=== PATIENT | female | born 1995 | race Caucasian/White ===

== ENCOUNTER 2023-02-17 02:02 | Outpatient (CLI) | payer BC, OTHER ==
[2023-02-17 03:18] VITALS: BP 133/79; PULSE 95; RESP 16; TEMP 97
--- NOTE | 2023-03-29 12:10 | P.MSEPDOC ---
Presenting Problems - Arrival Data Date of Arrival on Unit: 02/17/23 Time of Arrival on Unit: 02:02 Mode of Transport: Wheelchair - Complaint OB-Reason for Admission/Chief Complaint: Other Comment: Patient presents to triage with complaints of nausea, vomiting x1, and diarrhea x1 around 0122 this morning, with abdominal cramping rating pain 5/10, slightly more painful than period cramps. Medical History - Information : 1 Para: 0 Term: 0 : 0 Abortions: Spontaneous or Elective: 0 Number of Living Children: 0 - Gestational Age Gestational Age by BELEN (wks/days): 38 Weeks and 0 Days Review of Systems - Review of Systems Constitutional: No problems Breast: No problems ENT: No problems Cardiovascular: No problems Respiratory: No problems Gastrointestinal: No problems Genitourinary: No problems Musculoskeletal: No problems Neurological: No problems Skin: No problems Vital Signs - Temperature Temperature: 97.0 F Temperature Source: Temporal Artery Scan - Pulse Pulse Oximetery Pulse Rate: 95 Pulse Assessment Method: Pulse Oximetry - Respirations Respiratory Rate: 16 Oxygen Delivery Method: Room Air O2 Sat by Pulse Oximetry: 98 - Blood Pressure Right Arm Blood Pressure: 133/79 Blood Pressure Mean: 97 Blood Pressure Source: Automatic Cuff Medical Screen Scoring - Cervical Exam Dilation (cm): 1 Membranes: Intact - Uterine Contractions Frequency From (mins): 2 Frequency To (mins): 4 Duration From (seconds): 30 Duration To (seconds): 40 Intensity: Mild Resting: Soft to palpation - Assessment - Baby A Baseline FHR: 130 Heart Rate - NICHD Category: Category I (Normal) NST: Reactive Physician Notification - Physician Notified Physician Notified Date: 02/17/23 Physician Notified Time: 02:29 Physician: Lara Huff Order Received: Yes (Discharge home with instructions) Maternal Triage Index - Maternal Triage Index Presenting for scheduled procedure w/no complaint: No - Stat/Priority 1 Stat Priority 1: No - Urgent/Priority 2 Urgent Priority 2: No - Prompt/Priority 3 Prompt Priority 3: No - Non-Urgent/Priority 4 Non-Urgent Priority 4: Yes Criteria Met for Priority 4: Dr. Huff called with triage patient, RN gave report on maternal and status. Patient complaint of nausea, vomiting x1, and diarrhea x1 around 0122 this morning. Contractions 2-4 minutes apart with pain rating slightly more painful than a period cramp. Reactive NST. No leaking fluid. Orders to discharge home with instructions to return to triage if contractions start lasting longer and become stronger about 2-3 minutes apart. O ral fluids as tolerated, and BRAT diet intructions and education. Disposition - Disposition OB Disposition: Discharge to home Discharge Date: 02/17/23 Discharge Time: 02:38 I agree with the RN Medical Screening Exam: Yes Case reviewed; plan agreed upon as documented in EMR&OBIX.: Yes Diagnosis: nausea and vomitting in
== END 2023-02-17 02:38 | disposition home or self-care (01) ==
LOC: FBPOP 02:02
PROVIDERS: ATTEND Obstetrics & Gynecology
DX: O21.9 Vomiting of pregnancy, unspecified (principal); Z3A.38 38 weeks gestation of pregnancy
CPT/HCPCS: 59025; 99213

== ENCOUNTER 2023-02-28 11:46 | Outpatient (CLI) | payer BC, OTHER ==
[2023-02-28] MEDS ORDERED: ACETAMINOPHEN TAB 500 MG TAB PO STA (12:19)
[2023-02-28 13:12] VITALS: BP 127/77; PULSE 95; RESP 14; TEMP 97.2
--- NOTE | 2023-04-18 16:16 | P.MSEPDOC ---
Presenting Problems - Arrival Data Date of Arrival on Unit: 02/28/23 Time of Arrival on Unit: 11:46 Mode of Transport: Ambulatory - Complaint OB-Reason for Admission/Chief Complaint: Headache Medical History - Information : 1 Para: 0 Term: 0 : 0 Abortions: Spontaneous or Elective: 0 Number of Living Children: 0 - Gestational Age Gestational Age by BELEN (wks/days): 39 Weeks and 4 Days Review of Systems - Review of Systems Constitutional: No problems Breast: No problems ENT: No problems Cardiovascular: No problems Respiratory: No problems Gastrointestinal: No problems Genitourinary: No problems Musculoskeletal: No problems Neurological: No problems Skin: No problems Vital Signs - Temperature Temperature: 97.2 F Temperature Source: Temporal Artery Scan - Pulse Right Brachial Pulse Rate: 95 Pulse Assessment Method: Automatic Cuff - Respirations Respiratory Rate: 14 Oxygen Delivery Method: Room Air - Blood Pressure Right Arm Blood Pressure: 127/77 Blood Pressure Mean: 93 Blood Pressure Source: Automatic Cuff Medical Screen Scoring - Assessment - Baby A Baseline FHR: 135 Heart Rate - NICHD Category: Category I (Normal) NST: Reactive Physician Notification - Physician Notified Physician Notified Date: 02/28/23 Physician Notified Time: 12:19 Physician: Qing Barron New Order Received: Yes - Notification Comment Comment: d/c home Maternal Triage Index - Maternal Triage Index Presenting for scheduled procedure w/no complaint: No - Stat/Priority 1 Stat Priority 1: No - Urgent/Priority 2 Urgent Priority 2: No - Prompt/Priority 3 Prompt Priority 3: No - Non-Urgent/Priority 4 Non-Urgent Priority 4: Yes Criteria Met for Priority 4: discomforts of - Scheduled/Requesting Priority 5 Scheduled/Requesting Priority 5: No Disposition - Disposition OB Disposition: Discharge to home Discharge Date: 02/28/23 Discharge Time: 13:07 I agree with the RN Medical Screening Exam: Yes Case reviewed; plan agreed upon as documented in EMR&OBIX.: Yes Diagnosis: RELATED CONDITIONS, UNSPECIFIED, THIRD TRIMESTER
== END 2023-02-28 13:13 | disposition home or self-care (01) ==
LOC: FBPOP 11:46
PROVIDERS: ATTEND Obstetrics & Gynecology Obstetrics
DX: O26.893 Other specified pregnancy related conditions, third trimester (principal); R51.9 Headache, unspecified; Z3A.38 38 weeks gestation of pregnancy
CPT/HCPCS: 59025; 99213

== ENCOUNTER 2023-03-03 23:22 | Inpatient (IN) | payer BC, OTHER ==
[2023-03-04] MEDS ORDERED: CARBOPROST TROMETHAMINE 250 MCG/ML 1 ML AMP IM PRN (07:36)
[2023-03-04] MEDS ORDERED: miSOPROStoL 200 MCG TAB PO PRN (07:36)
[2023-03-04] MEDS ORDERED: METHYLERGONOVINE 0.2 MG/ML 1 ML AMP IM PRN (07:36)
[2023-03-04] MEDS ORDERED: OXYTOCIN 10 UNIT/ML 1 ML VIAL IM PRN (07:36)
[2023-03-04] MEDS ORDERED: TERBUTALINE 1 MG/ML VIAL SQ PRN (07:36)
[2023-03-04] MEDS ORDERED: TRANEXAMIC 1,000 MG/100ML-NACL 1,000 MG in EMPTY BAG 1 BAG IV PRN (07:36)
[2023-03-04] MEDS ORDERED: LIDOCAINE 0.5% (PF) 5 MG/ML (50 ML SDV) SQ PRN (07:36)
[2023-03-04] MEDS ORDERED: OXYTOCIN 30 UNITS/500 ML NS 30 UNIT in SALINE 1 500ML.BAG IV SCH (07:45)
[2023-03-04] MEDS: LACTATED RINGERS 1,000 ML IV SCH ×3 (07:46→11:37)
[2023-03-04 07:57] LABS: Basophils % (A) 0 %; Eosinophils # (A) 0.1 k/uL (0-0.7); Eosinophils % (A) 1 %; HCT 35.5 % (34.0-46.0); HGB 12.3 gm/dL (11.4-16.0); Lymphocytes # (A) 2.1 k/uL (1.0-4.8); Lymphocytes % (A) 17 %; MCH 31.1 pg (25.0-35.0); MCHC 34.6 g/dL (31.0-37.0); MCV 90.1 fL (80.0-100.0); Mean Platelet Volume 7.8; Monocytes # (A) 0.5 k/uL (0-1.0); Monocytes % (A) 4 %; Neutrophils # (A) 9.4 k/uL (1.3-7.7); Neutrophils % (A) 77 %; Platelet Count 203 k/uL (150-450); RBC 3.94 m/uL (3.80-5.40); RDW 14.3 % (11.5-15.5); WBC 12.2 k/uL (3.8-10.6)
--- NOTE | 2023-03-04 09:35 | P.HPOB ---
History of Present Illness H&P Date: 03/04/23 Chief Complaint: IUP at 40 1/7 weeks, latent labor 27-year-old at 40 1/7 weeks presented to labor and delivery last evening after she noted some vaginal bleeding and contractions. Patient was not making cervical change, heart tones were category 2 therefore she was observed overnight. Patient had been receiving routine care with myself which has been essentially uncomplicated. Patient states she notes good movement and occasional contraction. Review of Systems Constitutional: Denies chills, Denies fatigue, Denies fever Ears, nose, mouth and throat: Denies headache Cardiovascular: Reports leg edema Respiratory: Denies dyspnea Gastrointestinal: Denies constipation, Denies diarrhea, Denies nausea, Denies vomiting Genitourinary: Reports Past Medical History Past Medical History: No Reported History History of Any Multi-Drug Resistant Organisms: None Reported Past Surgical History: No Surgical Hx Reported Past Anesthesia/Blood Transfusion Reactions: No Reported Reaction Smoking Status: Never smoker Medications and Allergies Home Medications Medication Instructions Recorded Confirmed Type Vit No.179/Iron/Folic 1 each PO DAILY 02/17/23 03/03/23 History [ Tablet] Allergies Allergy/AdvReac Type Severity Reaction Status Date / Time No Known Allergies Allergy Verified 03/03/23 23:24 Exam Osteopathic Statement: *. No significant issues noted on an osteopathic structu ral exam other than those noted in the History and Physical/Consult. Vital Signs Temp Pulse Resp BP Pulse Ox 03/04/23 01:28 97.8 F 82 16 123/69 99 03/03/23 23:23 97.5 F L 82 16 118/68 98 Intake and Output 03/03/23 03/04/23 03/04/23 22:59 06:59 14:59 Other: # Voids 2 Weight 99.79 kg Targeted physical exam is performed in this date and manager risk management a well-nourished well-developed female in no acute distress, breathing is nonlabored, heart has a regular rate and rhythm, abdomen is gravid, on cervical exam she is 2/80/-2 station amniotomy is performed and clear fluid was obtained. heart tones were noted to be category 2, contractions were irregular, Pitocin at 2 milliunits at the time of rupture of membranes. Results Result Diagrams: 03/04/23 07:38 Abnormal Lab Results - Last 24 Hours (Table) 03/04/23 Range/Units 07:38 WBC 12.2 H (3.8-10.6) k/uL Neutrophils # 9.4 H (1.3-7.7) k/uL Assessment and Plan (1) Post-dates Current Visit: Yes Status: Acute Code(s): O48.0 - POST-TERM SNOMED Code(s): 36955567 Plan: 27-year-old at 40 1/7 weeks that presented to labor and delivery last evening with complaints of vaginal bleeding and contractions. Patient was not noted to be in labor but heart tones were noted to be category 2 therefore she was observed overnight. This a.m. patient was admitted and Pitocin induction of labor was begun given heart tones, status. Patient underwent amniotomy and clear fluid was obtained. Patient is counseled on options for analgesia including Nubain, nitrous, epidural. Patient states she will consider. Patient is counseled on heart tones and possible need for section. We'll continue to monitor closely.
[2023-03-04] MEDS ORDERED: SODIUM CHLORIDE 0.9% 250 ML BAG ONE (10:34)
[2023-03-04] MEDS ORDERED: fentaNYL (PF) 50 MCG/ML 5 ML AMP ONE (10:34)
[2023-03-04] MEDS ORDERED: ROPIVACAINE 5 MG/ML 30 ML VIAL ONE (10:34)
[2023-03-04] MEDS ORDERED: ROPIVACAINE 225 MG, fentaNYL (PF). 450 MCG in SODIUM CHLORIDE 0.9% 171 ML EPIDURAL ONE (11:54)
[2023-03-04] MEDS: IBUPROFEN 600 MG TAB PO SCH ×2 (18:00→23:38)
[2023-03-04] MEDS ORDERED: diphenhydrAMINE 50 MG CAP PO PRN (18:25)
[2023-03-04] MEDS ORDERED: diphenhydrAMINE 50 MG/ML 1 ML VIAL IVP PRN ×2 (18:25)
[2023-03-04] MEDS ORDERED: ZOLPIDEM 5 MG TAB PO PRN (18:25)
[2023-03-04] MEDS ORDERED: LANOLIN CREAM 5 GM TUBE TOPICAL PRN (18:25)
[2023-03-04] MEDS ORDERED: SIMETHICONE 80 MG CHEWABLE PO PRN (18:25)
[2023-03-04] MEDS ORDERED: HYDROCORTISONE 2.5% RECTAL CREAM 30 GM TUBE RECTAL PRN (18:25)
[2023-03-04] MEDS ORDERED: diphenhydrAMINE 25 MG CAP PO PRN (18:25)
--- NOTE | 2023-03-04 18:33 | P.PROBDLV ---
Vaginal Delivery Note - . Vaginal Delivery Note: Findings; viable female delivered at 1723, weight of 7 lbs. 7 oz., Apgars of 9 and 9 at one and 5 minutes respectively. This is a 27-year-old 1 para 0 that presented to labor and delivery last evening at 40 and one sevenths weeks, patient had noted contractions and vaginal bleeding at home. Patient had noted category 2 heart tones therefore she was observed overnight contractions were irregular. Patient was noted to be 2 cm with no cervical change noted through the night. This a.m. after a episode of minimal variability category 2 heart tones continued therefore amniotomy was performed with planned induction of labor given category 2 heart tones. Pitocin was begun approximately 1 hour prior to amniotomy. Clear fluid was obtained upon amniotomy. patient did well with contractions but did become uncomfortable requesting epi dural placement. Epidural was placed without difficulty by the anesthesia department. Patient made good progress towards complete. Once completely dilated patient began pushing. With excellent maternal effort patient brought the infant down to a presentation. A midline episiotomy was preformed secondary to suspec clitoral tearing, with the next push the head was delivered in an OA presentation followed by the anterior and posterior shoulders, body. Spontaneous cry was noted at . After two-minute delay the umbilical cord was doubly clamped and cut. The placenta was delivered spontaneously intact with a three-vessel cord being noted. On inspection the patient's vaginal vault bilateral sulcus tears in addition to a midline episiotomy laceration was appreciated. Patient had a dense epidural therefore the midline episiotomy was repaired in the usual fashion with 3-0 Rapide. Attention was then turned to the patient's right-sided sulcal tear which was repaired with 3-0 Vicryl in a running locked fashion. Attention was then turned to the left sulcal tear which was repaired with 3-0 Rapide in a running locked fashion. Midline bleeding was appreciated afterwards therefore multiple [id number] sutures were used for hemostasis. Surgicel powder was placed along the mucosal edges as they continued to have oozing. After powder was placed and pressure was applied bleeding improved. Uterus is noted to be firm and below the umbilicus. Prior to delivery of the placenta the bladder was drained for approximately 100 mL of clear yellow urine. All counts were noted to be correct 2 at the end of the delivery. Estimated blood loss 250cc
[2023-03-04] MEDS: ACETAMINOPHEN TAB 325 MG TAB PO PRN (21:13)
[2023-03-04] MEDS: SENNOSIDES-DOCUSATE SODIUM 1 EACH TAB PO SCH (23:37)
[2023-03-05] MEDS: ACETAMINOPHEN TAB 325 MG TAB PO PRN ×3 (03:41→15:17)
[2023-03-05] MEDS: IBUPROFEN 600 MG TAB PO SCH ×3 (06:00→19:19)
[2023-03-05 06:52] LABS: Basophils % (A) 0 %; Eosinophils % (A) 0 %; HCT 29.5 % (34.0-46.0); Lymphocytes # (A) 1.9 k/uL (1.0-4.8); Lymphocytes % (A) 11 %; MCHC 32.7 g/dL (31.0-37.0); MCV 91.9 fL (80.0-100.0); Mean Platelet Volume 8.5; Monocytes # (A) 0.7 k/uL (0-1.0); Monocytes % (A) 4 %; Neutrophils # (A) 14.3 k/uL (1.3-7.7); Neutrophils % (A) 83 %; Platelet Count 203 k/uL (150-450); RBC 3.21 m/uL (3.80-5.40); RDW 14.5 % (11.5-15.5); WBC 17.2 k/uL (3.8-10.6)
[2023-03-05 06:54] LABS: HGB 9.6 gm/dL (11.4-16.0)
[2023-03-05] MEDS: SENNOSIDES-DOCUSATE SODIUM 1 EACH TAB PO SCH (08:08)
[2023-03-05 10:36] VITALS: RESP 18
--- NOTE | 2023-03-05 10:53 | P.DS ---
Providers Date of admission: 03/04/23 01:24 Expected date of discharge: 03/05/23 Attending physician: Qing Barron Primary care physician: Stated None - Discharge Diagnosis(es) (1) Normal spontaneous vaginal delivery Current Visit: Yes Status: Acute Hospital Course: The patient is a 27-year-old 1 para 0 admitted at 40 and one sevenths weeks by good dating parameters. She is admitted for observation secondary to a category 2 heart rate tracing. After overnight observation, the decision was made to proceed with induction. She had Pitocin augmentation started and artificial rupture of membranes carried out. She made progress into the active phase of labor and had an epidural catheter placed for analgesia. She continued to progress to complete and then ultimately pushed to a normal spontaneous vaginal delivery of a viable 7 lbs. 7 oz. baby girl with Apgars of 9 at 1 minute and 9 at 5 minutes. She did have a fairly significant perineal laceration with bilateral sulcus tears which were repaired following delivery. Her course has been unremarkable with vital signs being stable and her temperature was afebrile throughout. Vaginal bleeding was minimal. She was deemed stable for discharge on day 1 was discharged home to follow-up in the office in 6 weeks' time routinely. Discharge instructions included calling for any significantly increased bleeding or foul-smelling lochia, significantly increased fever or abdominal pain, perineal complaints, breast complaints, or anything else that concerned her. She is additionally instructed to have nothing in the vagina for at least 6 weeks time to include intercourse. She understood her instructions and agrees to follow up as noted above. Discharge medications included continued vitamins as she has opted to breast- feed. She was otherwise to use [id number] analgesic pain medications as needed. Maternal blood type is AB+ and rubella status is immune. Procedures: #1. Pitocin induction #2. Artificial rupture of membranes #3. Epidural analgesia #4. Normal spontaneous vaginal delivery #5. Repair of perineal and sulcus lacerations Patient Condition at Discharge: Stable Plan - Discharge Summary New Discharge Prescriptions: No Action Vit No.179/Iron/Folic [ Tablet] 1 each PO DAILY Discharge Medication List Vit No.179/Iron/Folic [ Tablet] 1 each PO DAILY 02/17/23 [His tory] Follow up Appointment(s)/Referral(s): Qing Barron DO [Doctor of Osteopathic Medicine] - 6 Weeks Discharge Disposition: HOME SELF-CARE
[2023-03-05 15:46] VITALS: BP 122/68; PULSE 110; TEMP 98.2
== END 2023-03-05 18:30 | disposition home or self-care (01) | DRG 806 ==
LOC: FBPOP 23:22 → 4FBP 03-04 01:24
PROVIDERS: ADMIT Obstetrics & Gynecology; ATTEND Obstetrics & Gynecology Obstetrics
PROC: 10907ZC Drainage of Amniotic Fluid, Therapeutic from Products of Conception, Via Natural or Artificial Opening (ICD-10-PCS; principal; 2023-03-04)
PROC: 10E0XZZ Delivery of Products of Conception, External Approach (ICD-10-PCS; principal; 2023-03-04)
PROC: 0W8NXZZ Division of Female Perineum, External Approach (ICD-10-PCS; principal; 2023-03-04)
PROC: 0UQG7ZZ Repair Vagina, Via Natural or Artificial Opening (ICD-10-PCS; principal; 2023-03-04)
DX: O48.0 Post-term pregnancy (principal); O71.4 Obstetric high vaginal laceration alone; O67.9 Intrapartum hemorrhage, unspecified; Z28.310 Unvaccinated for COVID-19; Z3A.40 40 weeks gestation of pregnancy; Z37.0 Single live birth
CPT/HCPCS: 59025; 84112; 85025; 86850; 86900; 86901; 99213